=== PATIENT | male | born 1955 | race Two or more races ===

== ENCOUNTER 2020-02-06 05:58 | Emergency (ER) | payer OTHER ==
[~2020-02-06] VITALS: Ht 182.9 cm; Wt 136.1 kg
[2020-02-06 07:10] VITALS: BP 146/85
== END 2020-02-06 08:31 | disposition home or self-care (01) ==
LOC: EDBD 05:58 → ER 05:58
DX: M54.16 Radiculopathy, lumbar region (principal); I10 Essential (primary) hypertension; V43.52XA Car driver injured in collision with other type car in traffic accident, initial encounter; Y93.89 Activity, other specified; Y92.89 Other specified places as the place of occurrence of the external cause; Y99.8 Other external cause status
CPT/HCPCS: 72131